=== PATIENT | male | born 1985 | race Caucasian/White ===

== ENCOUNTER 2020-03-22 20:00 | Outpatient (CLI) | payer OTHER, SELFPAY | END 2020-03-22 20:01 | disposition home or self-care (01) | LOC: SLEEP 03-23 08:43 | PROVIDERS: Family Provider Family Medicine; PCP Nurse Practitioner Family; Visit Provider Specialist | DX: G47.33 Obstructive sleep apnea (adult) (pediatric) (principal) | CPT/HCPCS: 95811 ==

== ENCOUNTER → 2021-12-23 09:34 | Outpatient (BNVA) | payer OTHER, SELFPAY | PROVIDERS: Family Provider Family Medicine; PCP Nurse Practitioner; Visit Provider Internal Medicine Critical Care Medicine | DX: J82.83 Eosinophilic asthma (principal); G47.33 Obstructive sleep apnea (adult) (pediatric); J30.9 Allergic rhinitis, unspecified; K21.9 Gastro-esophageal reflux disease without esophagitis | CPT/HCPCS: 99214 ==

== ENCOUNTER 2022-02-03 08:10 | Outpatient (CLI) | payer OTHER, SELFPAY ==
--- NOTE | 2022-02-03 08:20 | US_ITS ---
WS: [id number] THYROID ULTRASOUND HISTORY: ENLARGED THYROID COMPARISON: None available. Right lobe: 2.7 cm x 2.4 cm x 6.5 cm (w x ap x l). Volume: 21.9 cm3. Mildly enlarged thyroid gland. Hypoechoic nodule which has benign features measures 1.0 x 0.6 x 1.0 c m in the inferior pole. There is enhancement additional very hypoechoic nodule with through transmiss ion in the inferior thyroid measuring 1.1 x 1.4 x 2.0 cm. This is not a simple cyst but does contain septations. No increased vascularity. This may be a complex cyst. No echogenic foci within either thy roid mass. Left lobe: 2.5 cm x 2.5 cm x 6.2 cm (w x ap x l). Volume: 20.4 cm3. Mildly enlarged gland. Predominantly hyperechoic nodule in the mid gland measures 1.0 x 0.9 x 1.7 cm. No increased vascularity. No echogenic foci. Isthmus: 0.5 cm. US/US thyroid 31417 IMPRESSION: 1. TI-RADS 4. Recommend follow-up ultrasound in one year to document stability . The most concerning nodule is in the inferior RIGHT lobe which is probably a complex cyst. This has several benign-appearing features. Recommend follow-up ultrasound in one year. 2. Mild thyromegaly.
== END 2022-02-03 08:11 | disposition home or self-care (01) ==
LOC: RAD 08:11
PROVIDERS: PCP Nurse Practitioner; Visit Provider Nurse Practitioner
DX: E04.9 Nontoxic goiter, unspecified (principal)
CPT/HCPCS: 76536

== ENCOUNTER → 2022-04-03 09:13 | Outpatient (BNVA) | payer OTHER, SELFPAY | PROVIDERS: PCP Nurse Practitioner; Referring Provider Nurse Practitioner; Visit Provider Internal Medicine | DX: E05.90 Thyrotoxicosis, unspecified without thyrotoxic crisis or storm (principal); E04.1 Nontoxic single thyroid nodule | CPT/HCPCS: 99204 ==

== ENCOUNTER → 2022-06-08 10:33 | Outpatient (BNVA) | payer OTHER, SELFPAY | PROVIDERS: PCP Nurse Practitioner; Visit Provider Internal Medicine | DX: E04.1 Nontoxic single thyroid nodule (principal); E05.90 Thyrotoxicosis, unspecified without thyrotoxic crisis or storm | CPT/HCPCS: 99214 ==

== ENCOUNTER 2022-07-05 13:11 | Emergency (ER) | payer OTHER, SELFPAY ==
[2022-07-05 13:20] VITALS: BP 124/69; PULSE 69; RESP 17; TEMP 36.8; O2SAT 96; BMI 34.5
[2022-07-05 13:37] VITALS: BP 125/67; PULSE 66; RESP 16; O2SAT 97
--- NOTE | 2022-07-05 13:43 | ECG_ITS ---
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 Measurements Intervals [place] Rate: 60 P: 159 TX: 158 QRS: 157 QRSD: 92 T: 199 QT: 403 QTc: 406 Interpretive Statements SINUS RHYTHM ARM LEADS REVERSED [INVERTED P AND QRS IN I] No previous ECG available for comparison Electronically Signed On 07-05-2022 16:50:21 FIELD HUMAN RESOURCES MANAGER by Ivette Silva M.D. [id number]
--- NOTE | 2022-07-05 14:11 | ED_ITS ---
HPI - General Adult General: Chief complaint: General Medical Stated complaint: [facility] Time Seen by Provider: 07/05/22 13:33 History of Present Illness: Patient is a 36-year-old male comes to the ED for an episode of palpitations. Episode occurred last night. Patient says he got up to do the dishes and he started feeling little lightheaded and he was having palpitations. Denies any chest pain or shortness of breath or any diaphoresis. Episode lasted for about 10 to 15 minutes. [facility] him about episode and they told him to come here to the ED for further evaluation. Here in the ED he reports no symptoms and denies any chest pain or any current palpitations. Associated symptoms: Reports palpitations; Deny chest pain, dyspnea, headache(s), nausea, rash or vomiting Review of Systems Const: Denies: fever(s), chills or fatigue Eyes: Denies: change in vision or eye discomfort ENMT: Denies: throat pain, odynophagia, nasal discharge or nasal congestion Card: Reports: palpitations; Denies: chest pain, edema, swelling of feet/ankles, dyspnea on exertion or orthopnea Resp: Denies: dyspnea, productive cough or non-productive cough GI: Denies: abdominal pain, nausea, vomiting, diarrhea, constipation or hematochezia : Denies: flank pain, difficulty urinating, dysuria or hematuria Musc: Denies: neck pain, back pain or extremity swelling Skin/Breast: Denies: rash or new lesions Neuro: Denies: headache(s), numbness in extremities or weakness in extremities PFS ED PFSH: Medical History Allergies Asthma Depression GERD (gastroesophageal reflux disease) ANKIT (obstructive sleep apnea) Restrictive airway disease Surgical History H/O right knee surgery History of hernia surgery Family History Other Cancer Diabetes Social History Smoking and tobacco status: never smoked Second hand smoke exposure: No Smoking risk assessment/counseling performed?: No Alcohol intake: current Alcohol intake frequency: holidays/special occasions only Counseling given: No Lives independently: Yes Household members: spouse and children Marital status: Current occupational status: employed 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 Current occupational exposures/hazards: No History of recent travel: No Current gender identity: Male Physical Exam Const: COMMON NORMALS: no acute distress, patient oriented x3, healthy appearing and alert HENMT: COMMON NORMALS: normocephalic HEAD & SCALP: normocephalic MOUTH: Normal oral and palatal mucosa present THROAT: posterior oropharynx normal and uvula midline Neck/C-Spine: COMMON NORMALS: supple GENERAL: Yes normal visual inspection Resp: COMMON NORMALS: normal respiratory effort, No retractions, No use of accessory muscles and clear to auscultation bilaterally AUSCULTATION: clear to auscultation bilaterally Cardio: COMMON NORMALS: regular rate, regular rhythm, S1 normal heart sound present, S2 normal heart sound present, No gallops present (Cardio), No clicks present (Cardio), No murmurs present (Cardio) and Peripheral pulses 2+ throughout RATE: regular rate RHYTHM: regular rhythm HEART SOUNDS: S1 normal heart sound present and S2 normal heart sound present PERIPHERAL PULSES: Peripheral pulses 2+ throughout GI: COMMON NORMALS: Normal to inspection, nondistended, normoactive bowel sounds present, Soft to palpation, non-tender and no masses PALPATION: Yes Soft to palpation : COMMON NORMALS: Yes no CVA tenderness BLADDER/KIDNEY EXAM: Yes no CVA tenderness Back/Pelvis: COMMON NORMALS: no CVA tenderness Extremity: COMMON NORMALS: normal to inspection Neuro: COMMON NORMALS: patient oriented x3 SENSORIUM/ORIENTATION: Yes alert GAIT: Yes Normal gait present Skin: GENERAL SKIN EXAM: dry skin Course Vital Signs: Vital signs: Vital Signs Temperature 98.2 F 07/05/22 13:20 Pulse Rate 66 07/05/22 13:37 Respiratory Rate 16 07/05/22 13:37 Blood Pressure 125/67 07/05/22 13:37 Pulse Oximetry 97 07/05/22 13:37 Oxygen Delivery Wy thod 07/05/22 13:37 [facility] - General Adult Medical Decision Making Patient is a 36-year-old male comes to the ED for an episode of palpitations. Episode occurred last night. Patient says he got up to do the dishes and he started feeling little lightheaded and he was having palpitations. Denies any chest pain or shortness of breath or any diaphoresis. Episode lasted for about 10 to 15 minutes. Patient denies any chest pain and does not have any current palpitations or shortness of breath here in the ED. Vitals are stable. EKG showed normal sinus rhythm with no other acute findings or any arrhythmias noted. I placed an order with case management for patient to be set up with a Holter monitor. Strict return to ED precautions given. Patient told to follow- up with his PCP within the next week for reevaluation. Patient understood and agreed with plan. EKG Data EKG 1: EKG interpretation date: 07/05/22 Interpretation: Sinus rhythm, no ST segment elevation or depression seen. 60 bpm. Discharge Plan Discharge Patient Disposition: Home Clinical Impression: Heart palpitations Condition: Stable Prescriptions: No Action omeprazole 10 mg capsule,delayed release(DR/EC) 10 mg PO DAILY fluoxetine [Prozac] 10 mg capsule 30 mg PO DAILY montelukast [Singulair] 10 mg tablet 10 mg PO DAILY albuterol sulfate [ProAir HFA] 90 mcg/actuation HFA aerosol inhaler 2 puff inhalation Q6H PRN Zyrtec 10 mg capsule 10 mg PO DAILY fluticasone propionate [Flonase Allergy Relief] 50 mcg/actuation spray,suspension 1 spray intranasal Q12H 30 Days Qty: 16 4RF Rx Instructions: administer into each nostril budesonide-formoterol [Symbicort] 160-4.5 mcg/actuation HFA aerosol inhaler 2 puff inhalation BID 90 Days Qty: 30.6 2RF Rx Instructions: Please dispense Symbicort as prescribed. The patient is unable to tolerate the dry powder inhaler. Discharge Orders: Discharge ED (Routine); Ordered 07/05/22 Ordered By: Gomez Walker Referrals: Caitlin Hudson FNP [Primary Care Provider] - Discharge Diet: Regular Discharge Activity: Resume usual activity Patient Instructions: Heart Palpitations Activity Restrictions/Additional Instructions: Follow-up with medical provider as directed. I placed an order with case management for you to be set up with a Holter monitor and it should be sent to your home in the next couple weeks. Take medications as prescribed. Return to the ER or your medical provider if condition worsens. Please read and understand discharge instructions. Thank you for choosing [facility] for your healthcare needs today. Please realize this is an emergency room and that we are providing you with a medical screening exam and this may not be complete and all inclusive of all the testing and or work up that you may need to determine your ailment or severity of your illness. It is very important that you follow up as instructed or that you return to the Emergency Department should you have concerns or if your condition changes or worsens in any way. Coding Level of Care Code ED White Washer for Thang Falcon Exam Comprehensive
--- NOTE | 2022-07-06 12:02 | DCPLANNER ---
Addendum entered by Emani Yu 09/19/22 08:06: Patient had a follow up appointment scheduled with [facility] - patient did attend appointment. Addendum entered by Emani Yu 07/06/22 14:46: Patient has a follow up appointment scheduled for , August 24, 2022 at 2:[address] Hunter at [facility]. Clinic will call patient with appointment information. Original Note: general manager farm had message to schedule an outpatient appointment for patient for a holter monitor with [facility]. Patient has [facility] insurance, counseling case manager is unable to complete this order. general manager farm did refer patient to cardiology, and if the sign painter wants to order the halter monitor, they can. general manager farm sent patients information to the front office staff at [facility]. Patients information will be printed and reviewed. Clinic will call patient with appointment information.
== END 2022-07-05 15:12 | disposition home or self-care (01) ==
PROVIDERS: Emergency Provider Physician Assistant; PCP Nurse Practitioner
DX: R00.2 Palpitations (principal)
CPT/HCPCS: 93005; 99283

== ENCOUNTER → 2022-08-24 14:16 | Outpatient (BNVA) | payer OTHER, SELFPAY | PROVIDERS: PCP Nurse Practitioner; Visit Provider Internal Medicine Cardiovascular Disease | DX: I47.1 Supraventricular tachycardia (principal); E05.90 Thyrotoxicosis, unspecified without thyrotoxic crisis or storm; R06.09 Other forms of dyspnea; R07.9 Chest pain, unspecified; G47.33 Obstructive sleep apnea (adult) (pediatric); J45.909 Unspecified asthma, uncomplicated | CPT/HCPCS: 99204 ==

== ENCOUNTER 2022-09-28 06:07 | Outpatient (CLI) | payer OTHER, SELFPAY ==
--- NOTE | 2022-09-28 06:30 | USCV_ITS ---
Darrius Aldana Age: 36 Gender: M : 1985 Exam Date: 09/28/2022 06:20 Ordering Phys: Richard Hunter MD ([email or web address]) Technologist: DANIS [place] [facility] [place] Indication: SVT BP: 90 / 50 HR: 51 Rhythm: Sinus Technical Quality: Adequate MEASUREMENTS (Male / Female) Normal Values 2D ECHO LVOT Diameter 2.0 cm LV Ejection Fraction MOD 2C 68.2 % LV Ejection Fraction 2C AL 68.8 % LA Diameter 3.4 cm LA Width 3.6 cm LA Height 4.4 cm RA Width 3.3 cm RA Height 4.4 cm Aorta at Sinotubular Diameter 2.9 cm IVC Diameter 1.6 cm M-MODE Aortic Annulus Diameter 3.2 cm LA Ao Ratio MM 1.1 MV E Point Septal Separation 0.3 cm DOPPLER AV Peak Velocity 123.0 cm/s LVOT Peak Velocity 117.0 cm/s AV Area Cont Eq vti 3.2 cm squared AV Area Cont Eq pk 3.0 cm squared MV Peak Velocity 89.0 cm/s MV Area PHT 2.4 cm squared Mitral E to A Ratio 1.0 MV E' Velocity 43.0 cm/s Mitral E to MV E' Ratio 4.9 Mitral E to LV E' Lateral Ratio 3.8 Mitral E to LV E' Septal Ratio 7.1 TR Peak Velocity 136.8 cm/s TR Peak Gradient 7.5 mmHg TR Mean Velocity 107.1 cm/s TR Mean Gradient 4.9 mmHg TR Velocity Time Integral 37.5 cm TV Peak E Velocity 42.0 cm/s Right Atrial Pressure 3.0 mmHg Pulmonary Artery Systolic Pressu 10.5 mmHg PV Peak Velocity 87.0 cm/s RV Acceleration Time 0.2 s RV Ejection Time 0.3 s RV AcT/ET 0.5 FINDINGS Left Ventricle Normal left ventricular size and systolic function, EF 67 %. No regional wall motion abnormalities. Right Ventricle The right ventricle is normal in size and function. Right Atrium The right atrium is normal in size. Left Atrium The left atrium is normal in size. Mitral Valve Trace mitral valve regurgitation. Aortic Valve No gross abnormalities noted Tricuspid Valve No gross abnormalities noted Pulmonic Valve No gross abnormalities noted Pericardium Normal pericardium without effusion. Aorta Normal aortic annulus size. IVC Normal inferior vena cava. CONCLUSIONS Normal left ventricular size and systolic function, EF 67 %. No regional wall motion abnormalities. Trace mitral valve regurgitation. Normal cardiac chamber sizes. No significant valvular abnormalities noted. There is no pericardial effusion. There are no intracardiac masses. No intracardiac shunts by color-flow Doppler examination. No similar previous studies are available for comparison Dr Richard Hunter MD [facility] (Electronically Signed) Final Date: 01 October 2022 17:03 S
== END 2022-09-28 06:08 | disposition home or self-care (01) ==
PROVIDERS: PCP Nurse Practitioner; Visit Provider Internal Medicine Cardiovascular Disease
DX: I47.1 Supraventricular tachycardia (principal); I34.0 Nonrheumatic mitral (valve) insufficiency
CPT/HCPCS: 93306; 99204

== ENCOUNTER 2022-10-13 09:51 | Outpatient (CLI) | payer OTHER, SELFPAY ==
[2022-10-13 11:46] LABS: Free T4 Free Thyroxine 1.47 ng/dL (0.82-1.77); Thyroid Stimulating Hormone 0.55 uIU/mL (0.27-4.20)
[2022-10-14 10:05] LABS: T3 Total 84 ng/dL (76-181)
[2022-10-20 12:55] LABS: TSH Receptor Binding Antibody 1.09 IU/L (< OR = 2.00)
== END 2022-10-13 09:52 | disposition home or self-care (01) ==
LOC: LAB 09:56
PROVIDERS: PCP Nurse Practitioner; Visit Provider Internal Medicine
DX: E05.90 Thyrotoxicosis, unspecified without thyrotoxic crisis or storm (principal); E04.1 Nontoxic single thyroid nodule
CPT/HCPCS: 36415; 83516; 84439; 84443; 84480

== ENCOUNTER → 2022-10-26 13:51 | Outpatient (BNVA) | payer OTHER, SELFPAY | PROVIDERS: PCP Nurse Practitioner; Visit Provider Internal Medicine | DX: E05.90 Thyrotoxicosis, unspecified without thyrotoxic crisis or storm (principal); E04.1 Nontoxic single thyroid nodule | CPT/HCPCS: 99214 ==

== ENCOUNTER → 2022-11-01 13:55 | Outpatient (BNVA) | payer OTHER, SELFPAY | PROVIDERS: PCP Nurse Practitioner; Visit Provider Internal Medicine Cardiovascular Disease | DX: R07.9 Chest pain, unspecified (principal); R00.1 Bradycardia, unspecified | CPT/HCPCS: 93005 ==

== ENCOUNTER 2022-12-19 06:33 | Outpatient (CLI) | payer OTHER, SELFPAY ==
[2022-12-19 06:44] VITALS: BMI 34.5
--- NOTE | 2022-12-19 07:00 | NMCV_ITS ---
NM pham perf SPECT r/s* [id number] Mesha Aldanan Age: 37 Gender: M : 1985 Exam Date: 12/19/2022 07:58 Ordering Phys: Richard Hunter MD ([email or web address]) Technologist: JULIAN Sandoval Exam Location: [facility] Indications: TACHYCARDIA STRESS TEST [facility] IMAGE PROTOCOL Rest/Stress 1 Exercise Day Radiopharmaceutical Dose (mCi) Administration Site Administered by Rest: Tc-99m 10.7 IV Dany Morley, BLOOD BANK CUSTODIAN Sestamibi Stress:Tc-99m 32.7 IV Dany Morley, BLOOD BANK CUSTODIAN Sestamibi Rest: 19-Dec-2022 60 Discovery 630 Stress: 19-Dec-2022 30 Discovery 630 Radiopharmaceutical was injected at 85 % maximum heart rate. Images obtained in supine and prone position. SPECT RESULTS Technical Quality: Excellent Raw Data Analysis: Normal Image Corrections: No attenuation or motion correction applied Summed Stress Score: 1 Summed Rest Score: 0 Summed Difference Score: 1 PERFUSION FINDINGS There is a very small in size, reversible perfusion defect noted in apical wall. This is consistent with very small area of ischemia in this territory. FUNCTIONAL RESULTS (calculated via Gated SPECT) Stress Image LV EF (%): 68 Stress EDV (mL):174 TID: 0.96 Stress ESV (mL):55 FUNCTIONAL FINDINGS: There is normal left ventricular systolic function. IMPRESSIONS 1. Very small area of ischemia is seen in apical wall. 2. LV systolic function is normal. Lonny Pereira MD (Electronically Signed) Final Date: 25 December 2022 13:32 S
--- NOTE | 2022-12-19 07:00 | ECG_ITS ---
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 Interpretive Statements NAME OF STUDY: EXERCISE SESTAMIBI STRESS TEST INDICATION: [SVT; BRADYCARDIA] Initial stress test was ordered for Lexiscan however patient had significant bradycardia. We switched to exercise MIBI to also assess for chronotropic competence. EXERCISE DATA: The patient was exercised by Lon protocol. Baseline heart rate was 45 beats per minute. Baseline blood pressure was 111/70 millimeters of mercury. Target heart rate was 155 beats per minute. Maximum heart rate achieved was 159 which was 102% of the target heart rate. Maximum blood pressure was 150/43 millimeters of mercury. Total exercise time was 10 minutes 46 seconds. Maximum METs achieved was 13.5. The reason for ending the test was completion of protocol. The patient complained of shortness of breath during the stress test, which then resolved at the end of the test. ELECTROCARDIOGRAM: BASELINE: Showed sinus bradycardia with normal axis, no significant ST-T changes at the baseline noted. [] EXERCISE: At the peak exercise level, [] No significant ST-T changes suggestive of ischemia noted. [] RECOVERY: During the recovery period, heart rate dropped appropriately. No significant ST-T changes in the recovery suggestive of ischemia noted. [] CONCLUSION: 1. Exercise capacity excellent 2. Heart rate response was approriate 3. Blood pressure response was appropriate 4. Symptoms not suggestive of ischemia. 5. Electrocardiogram portion of the stress test was not suggestive of ischemia. 6. Nuclear scan will be documented separately. Electronically Signed On 12-29-2022 15:16:25 CDT by Lonny Pereira M.D. [id number]
--- NOTE | 2022-12-19 08:47 | ECG_ITS ---
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 Measurements Intervals [place] Rate: 43 P: 14 MI: 157 QRS: 38 QRSD: 98 T: 0 QT: 480 QTc: 408 Interpretive Statements SINUS BRADYCARDIA WITH OCCASIONAL VENTRICULAR PREMATURE COMPLEXES Compared to ECG 07/05/2022 13:43:42 Ventricular premature complex(es) now present Sinus rhythm no longer present Electronically Signed On 12-19-2022 16:35:35 CDT by Jesus Mcpherson M.D. [id number]
--- NOTE | 2022-12-19 08:47 | SUR.PREOP ---
pre stress note Dr Pereira came by to assess patient d/t change from SVT to a bradycardic rhythm. Dr Hunter is unavailable today d/t being out of town. Verbal orders to change stress from lexiscan to exercise mibe d/t change in rhythms from clinic visit to today. Noted and changed. Patient agreeable to switch.
[2022-12-19 09:30] VITALS: BP 111/72; PULSE 72
== END 2022-12-19 06:34 | disposition home or self-care (01) ==
PROVIDERS: PCP Nurse Practitioner; Visit Provider Internal Medicine Cardiovascular Disease
DX: I47.1 Supraventricular tachycardia (principal); R00.1 Bradycardia, unspecified; I99.8 Other disorder of circulatory system
CPT/HCPCS: 36415; 78452; 93005; 93017; A9500; J2785

== ENCOUNTER → 2023-01-10 14:12 | Outpatient (BNVA) | payer OTHER, SELFPAY | PROVIDERS: PCP Nurse Practitioner; Visit Provider Nurse Practitioner Family | DX: I47.1 Supraventricular tachycardia (principal); R94.39 Abnormal result of other cardiovascular function study | CPT/HCPCS: 99214 ==

== ENCOUNTER 2023-02-26 20:00 | Outpatient (CLI) | payer OTHER, SELFPAY | END 2023-02-26 20:01 | disposition home or self-care (01) | LOC: SLEEP 02-27 06:39 | PROVIDERS: PCP Nurse Practitioner; Visit Provider Nurse Practitioner | DX: G47.30 Sleep apnea, unspecified (principal) | CPT/HCPCS: 95811 ==

== ENCOUNTER 2023-06-19 15:51 | Outpatient (CLI) | payer OTHER, SELFPAY ==
--- NOTE | 2023-06-19 16:16 | MR_ITS ---
WS: [id number] MRI LEFT SHOULDER HISTORY: LEFT SHOULDER PAIN COMPARISON: None available. TECHNIQUE: Multiplanar sequences of the shoulder joint are submitted. The study is significantly compromised by motion artifact. 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 No significant subacromial impingement. No subdeltoid or subacromial fluid collection. Biceps tendon is normal. No os acromion. No significant muscle atrophy is identified and no edema. There is a small amount of fluid along the subscapularis tendon. Tendon appears intact. Mild coracohumeral interval narrowing. Grossly the labru m is unremarkable. IMPRESSION: 1. The study is compromised significantly by the amount of motion artifact. Patient was unable to rem ain still for this examination. 2. Mild AC joint arthritis. 3. No definite rotator cuff tear is identified and no labral tears seen. Small tears or abnormalities would be difficult to visualize with this amount of motion. There is no full-thickness tear. 4. Mild coracohumeral interval narrowing.
== END 2023-06-19 15:52 | disposition home or self-care (01) ==
LOC: RAD 15:52
PROVIDERS: PCP Nurse Practitioner; Visit Provider Nurse Practitioner
DX: M25.512 Pain in left shoulder (principal); M19.012 Primary osteoarthritis, left shoulder
CPT/HCPCS: 73221

== ENCOUNTER → 2023-07-04 15:15 | Outpatient (BNVA) | payer OTHER, SELFPAY | PROVIDERS: PCP Nurse Practitioner; Referring Provider Nurse Practitioner; Visit Provider Internal Medicine Pulmonary Disease | DX: J82.83 Eosinophilic asthma (principal); J30.9 Allergic rhinitis, unspecified; G47.33 Obstructive sleep apnea (adult) (pediatric); K21.9 Gastro-esophageal reflux disease without esophagitis | CPT/HCPCS: 99214 ==

== ENCOUNTER 2023-07-18 13:53 | Outpatient (CLI) | payer OTHER, SELFPAY | END 2023-07-18 13:54 | disposition home or self-care (01) | LOC: RT 13:53 | PROVIDERS: PCP Nurse Practitioner; Visit Provider Internal Medicine Pulmonary Disease | DX: J30.9 Allergic rhinitis, unspecified (principal) | CPT/HCPCS: 94010; 94726; 94729 ==

== ENCOUNTER 2025-05-29 10:23 | Outpatient (CLI) | payer OTHER, SELFPAY ==
[2025-05-29 10:51] LABS: Sperm Count 0.0000 mill/mL (40-160)
== END 2025-05-29 10:24 | disposition home or self-care (01) ==
PROVIDERS: PCP Family Medicine Geriatric Medicine; Visit Provider Urology
DX: Z98.52 Vasectomy status (principal)
CPT/HCPCS: 36415; 89310